=== PATIENT | female | born 1995 | race African-American/Black ===

== ENCOUNTER 2019-11-20 19:11 | Emergency (ER) | payer SELFPAY ==
[2019-11-20 19:31] VITALS: BP 156/94; PULSE 106; RESP 20; TEMP 36.3; O2SAT 97
--- NOTE | 2019-11-20 20:30 | PC.NURSE ---
PT UP TO DOT TO COMPLAIN OF L CHESST PAIN, EKG ORDERED AND OBTAINED BY TECH
--- NOTE | 2019-11-20 20:45 | ECG_ITS ---
Measurements Intervals [place] Rate: 79 P: 44 IA: 183 QRS: 37 QRSD: 107 T: 36 QT: 348 QTc: 401 Interpretive Statements SINUS RHYTHM BASELINE ARTIFACT- II, III, V2 NORMAL ECG Electronically Signed On 11-21-2019 7:28:56 HYDROGENATION STILL OPERATOR by Trino Wells D.O.
[2019-11-20 21:22] VITALS: BP 170/99; PULSE 69; RESP 20; TEMP 36.8; O2SAT 99
--- NOTE | 2019-11-20 22:37 | ED.SKABFB ---
HPI - Skin/Abscess/Foreign Bdy General Chief complaint: Skin/Abscess/Foreign Body Stated complaint: sore on vagina Time Seen by Provider: 11/20/19 21:52 Source: patient and RN notes reviewed Mode of arrival: ambulatory Limitations: no limitations History of Present Illness HPI narrative: Pt is a 24 y/o female presenting to the ED c/o lumpy thing on vagina. Pt reports she has had a lumpy thing on her vagina for about 1 week that worsened earlier today. Pt notes she also thinks she had a yeast infection. Onset (ago): week(s) (1) Location: genitals Associated symptoms: denies other symptoms Related Data Allergies Allergy/AdvReac Type Severity Reaction Status Date / Time amoxicillin Allergy Unknown Verified 11/20/19 19:38 furosemide [From Lasix] Allergy Unknown Verified 11/20/19 19:40 Review of Systems Review of Systems: All systems reviewed & are unremarkable except as noted in HPI and below Genitourinary: Genitourinary: Reports other ( lumpy thing on vagina) PMFSH Past Medical History Medical History No significant past medical history Surgical History Surgical History No significant past surgical history Social History Social History Smoking status: Unknown if ever smoked Gender identity (if verbalized by the patient): Female Exam Const: General: healthy appearing, no acute distress and well developed Nutritional Appearance: well nourished Orientation/consciousness: patient oriented x3 (alert) and Other orientation findings (Alert) Limitations: no limitations HENMT: Head: normocephalic and atraumatic General nose exam: No nasal discharge present and no epistaxis Face and sinus: face symmetric Mouth: Yes lip normal Eyes: Conjunctivae: conjunctivae normal Sclera: sclerae normal EOM: EOMs intact bilaterally Neck: Neck: full ROM, no lymphadenopathy and supple Thyroid: thyroid normal Resp: Effort & Inspection: normal respiratory effort GI: Inspection: non-distended GI Palp: No abdominal tenderness and Yes Soft to palpation : Bimanual exam- vagina & uterus: no cervical motion tenderness OB/external & speculum: other (No bartholin abscess); No vaginal discharge Other: Small area of localized swelling at the posterior part of the right labia - compressible and not fluctuant Back/Spine/Pelvis: Thoracic/Lumbar Spine: thoracic and lumbar spine normal to inspection Skin: General skin exam: normal color and no rashes or lesions noted Neuro: General: patient oriented x3 (alert), moves all extremities and no focal motor deficits Cranial nerves: Yes facial symmetry Speech: normal speech Motor exam (neuro): Motor abnormalities not present Extrem: General: normal to inspection, full ROM and no pedal edema Psych: Affect: normal affect Course Vital Signs Vital signs: Vital Signs Temperature 36.3 C L 11/20/19 19:31 Pulse Rate 106 H 11/20/19 19:31 Respiratory Rate 20 11/20/19 19:31 Blood Pressure 156/94 H 11/20/19 19:31 Pulse Oximetry 97 11/20/19 19:31 Temperature 36.8 C 11/20/19 21:22 Pulse Rate 69 11/20/19 21:22 Respiratory Rate 20 11/20/19 21:22 Blood Pressure 170/99 H 11/20/19 21:22 Pulse Oximetry 99 11/20/19 21:22 Discharge Plan Discharge Clinical Impression: Vaginal irritation Patient Disposition: Home, Self-Care Condition: Stable Instructions: Antibiotic Form, Contact Dermatitis (ED) Additional Instructions: Sensitivity to condoms is a possibility, you can try products which are not latex and/or which have no spermicide or lubricant Follow-up/Referrals: PHYSICIAN,MASH FILTER PRESS OPERATOR [Primary Care Provider] - Von Kay MD [Physician] - (pelletizer operator, follow up exam if desired)
[2019-11-20 23:42] VITALS: BP 148/79; PULSE 82; RESP 18; O2SAT 99
== END 2019-11-20 23:45 | disposition home or self-care (01) ==
PROVIDERS: Emergency Provider Emergency Medicine
DX: N89.8 Other specified noninflammatory disorders of vagina (principal)
CPT/HCPCS: 93005; 99283